=== PATIENT | female | born 1940 | race Two or more races ===

== ENCOUNTER 2022-10-30 10:32 | Outpatient (CLI) | payer OTHER ==
[~2022-10-30 10:32] MED LIST: ALEVE220 M1 PO; AMLODIPINE BESY10 MG; AMLODIPINE-OLM1 EAC3 PO; DIOVAN320 MG PO; GLIMEPIRIDE4 M1; HYDROCHLOROTH12.5 MG PO; JANUVIA100 MG PO; SIMVASTATIN20 MG; SYNTHROID125 MCG PO; TOPROL XL100 M1 PO; VALSARTAN-HCTZ1 EAC4; VALSARTAN320 MG
== END 2022-10-30 10:37 | disposition home or self-care (01) ==
LOC: RAD 10:32
DX: R06.00 Dyspnea, unspecified (principal); J98.4 Other disorders of lung; R09.02 Hypoxemia; J90 Pleural effusion, not elsewhere classified

== ENCOUNTER → 2022-11-24 08:28 | Outpatient (CLI) | payer OTHER | END | disposition home or self-care (01) | LOC: LAB 08:28 | PROVIDERS: ATTEND Internal Medicine | DX: R10.9 Unspecified abdominal pain (principal); I10 Essential (primary) hypertension ==

== ENCOUNTER 2022-12-01 12:18 | Emergency (ER) | payer OTHER ==
[~2022-12-01] VITALS: Ht 160 cm; Wt 79.4 kg
[2022-12-01] MEDS ORDERED: JARDIANCE25 MG PO (12:37)
[2022-12-01] MEDS ORDERED: LASIX20 MG PO (12:37)
[2022-12-01] MEDS ORDERED: AMIODARONE HCL100 MG PO (12:37)
[2022-12-01] MEDS ORDERED: HYDRALAZINE HC100 MG PO (12:38)
[2022-12-01] MEDS ORDERED: PROTONIX40 MG PO (12:38)
[2022-12-01] MEDS ORDERED: ELIQUIS2.5 MG PO (12:39)
[2022-12-01] MEDS ORDERED: SYNTHROID175 MCG PO (12:39)
[2022-12-01] MEDS ORDERED: HUMALOG100 UNIT/2 SQ (12:39)
[2022-12-01] MEDS ORDERED: VISTARIL25 MG PO (13:23)
== END 2022-12-01 13:50 | disposition home or self-care (01) ==
LOC: ER 12:18
DX: R60.0 Localized edema (principal); F41.9 Anxiety disorder, unspecified; I50.9 Heart failure, unspecified
CPT/HCPCS: 96365; 99284; J1940

== ENCOUNTER 2023-12-12 11:23 | Inpatient (IN) | payer OTHER ==
[~2023-12-12] VITALS: Ht 157.5 cm; Wt 77.1 kg
[~2023-12-12 11:23] MED LIST changes: +AMIODARONE HCL100 MG PO; +ELIQUIS2.5 MG PO; +HUMALOG100 UNIT/2 SQ; +HYDRALAZINE HC100 MG PO; +JARDIANCE25 MG PO; +LASIX20 MG PO; +PROTONIX40 MG PO; +SYNTHROID175 MCG PO; +VISTARIL25 MG PO
--- NOTE | 2023-12-12 11:56 | NUR ---
PACIENTE FEMINA ALERTA Y ORIENTADA X3 QUIEN REFIERE QUE DESDE HACE 4 RENE APROXAMADAMENTE COMENZO CON MALESTAR GENERAL, NAUCEAS, FIEBRE, SE MONITOREAN S/V Y SE UBICA PACIENTE.
[2023-12-12] MEDS ORDERED: LEVALBUTEROL HCL 0.63 MG/3 ML SOLUTION IH ONE (12:30)
--- NOTE | 2023-12-12 12:37 | NUR ---
PACIENTE EVALUADA POR MD QUEIN ORDENA TRATAMIENTO MEDICO, SE LE ORIENTA A PACIENTE SOBRE EL MISMO Y REFIER ENTENDER, SE LE COLECTAN MUESTRAS, SE NOTIFICAN TERAPIAS A PERSONAL CORRESPONDIENTE.
[2023-12-12 12:55] LABS: HEMATOCRIT 30.2 % (36.0-45.00); HEMOGLOBIN 9.9 g/dL (12.0-15.00); MEAN CELL VOLUME 92.1 fL (80.00-100.00); MEAN CORPUSCULAR HEMOGLOBIN 30.3 pg (27.00-32.0); MEAN CORPUSCULAR HGB CONC 32.9 g/dl (32.0-36.0); PLATELET COUNT 193 K/uL (150-450); RED BLOOD COUNT 3.28 M/uL (4.00-6.00); RED CELL DISTRIBUTION WIDTH 14.8 % (11.5-14.5)
[2023-12-12 13:08] LABS: ALBUMIN 2.5 gm/dL (3.4-5.0); BILIRUBIN TOTAL 0.66 mg/dL (0.3-1.2); CREATININE SERUM 1.45 mg/dL (0.55-1.02); GFR 34.4; GLOBULINA 5.1 G/DL (2.4-3.5); POTASSIUM 3.91 mEq/L (3.5-5.1); TOTAL PROTEIN 7.6 gm/dL (6.4-8.2)
[2023-12-12 13:17] LABS: ABG PH 7.425 (7.35-7.45); ABG PO2 102.8 mmHg (80-100); ABG pCO2 43.4 mmHg (35-45); BASE EXCESS 2.9 mmol/l; BICARBONATE 27.8 mmol/l (23-25); SaO2 98.1 %; Tco2 29.1 mmol/l
[2023-12-12 13:55] LABS: allen test SATISFACTORY; o2 36 %; puncture site RADIAL RIGHT
[2023-12-12 14:11] LABS: URINE APPEARANCE Cloudy; URINE BILIRRUBIN Negative (NEGATIVE); URINE BLOOD Negative; URINE COLOR Yellow; URINE KETONE Negative (NEGATIVE); URINE LEUKOCYTE Negative; URINE NITRATE Negative; URINE UROBILINOGEN 0.2 E.U./dl
[2023-12-12 14:13] LABS: URINE BACTERIA 120.9 uL (0.0-1933); URINE CAST 4.58 uL (0.0-1.40); URINE EPITHELIAL CELLS 30.1 uL (0.0-38.8); URINE WBC 10.6 uL (0.0-23.2)
[2023-12-12 14:37] LABS: URINE GLUCOSE >=1000 MG/DL (NEGATIVE); URINE PROTEIN 100 (NEGATIVE)
--- NOTE | 2023-12-12 16:40 | NUR ---
SE RECIBE PTE DE AREA DE FT PENDIENTE A SER EVALUADA POR MEDICINA INTERNA.
[2023-12-12] MEDS ORDERED: IPRATROPIUM BROMIDE 0.5 MG/2.5 ML AMPUL.NEB IH SCH (18:57)
[2023-12-12] MEDS ORDERED: NITROGLYCERIN IN 5 % DEXTROSE 250 ML IV SCH (19:02)
[2023-12-12] MEDS ORDERED: DEXTROSE 50 % IN WATER 0.5 G/ML DISP.SYRIN IV PRN (19:15)
[2023-12-12] MEDS ORDERED: INSULIN LISPRO 1,000 UNIT/10 ML UNITS SUBCUTANEO PRN (19:15)
[2023-12-12] MEDS ORDERED: FUROsemide 20 MG/2 ML VIAL IV SCH (21:23)
[2023-12-12 23:31] LABS: MAGNESIUM 2.6 mg/dL (1.8-2.4); PHOSPHOROUS 3.8 mg/dL (2.5-4.9)
[2023-12-12 23:38] LABS: INR 1.08; PROTHROMBIN TIME 11.7 SECONDS (9.0-11.5)
[2023-12-12 23:40] LABS: PARTIAL THROMBOPLASTIN TIME 38.7 SECONDS (22.0-34.0)
[2023-12-13] VITALS (23 sets, daily range): BP systolic 100–176; BP diastolic 46–69; O2SAT 90–100
[2023-12-13] MEDS ORDERED: CEFTRIAXONE SODIUM 2,000 MG in 0.9 % SODIUM CHLORIDE 100 ML IV SCH ×2 (00:10→21:00)
[2023-12-13] MEDS ORDERED: ACETAMINOPHEN 500 MG GEL..CAP PO ONE (00:15)
[2023-12-13] MEDS ORDERED: LEVOTHYROXINE SODIUM 125 MCG TABLET PO SCH (06:00)
[2023-12-13] MEDS ORDERED: NITROGLYCERIN IN 5 % DEXTROSE 250 ML IV SCH (07:00)
[2023-12-13] MEDS ORDERED: APIXABAN 5 MG TABLET PO SCH (09:00)
[2023-12-13] MEDS ORDERED: METOPROLOL SUCCINATE 100 MG TAB.SR.24H PO SCH (09:00)
[2023-12-13] MEDS ORDERED: SIMVASTATIN 20 MG TABLET PO SCH (17:00)
[2023-12-13 22:17] LABS: ABG PH 7.429 (7.35-7.45); ABG PO2 64.8 mmHg (80-100); BASE EXCESS 2.6 mmol/l; BICARBONATE 27.2 mmol/l (23-25); Tco2 28.5 mmol/l; o2 32 %
[2023-12-13 22:18] LABS: allen test SATISFACTORY; puncture site RADIAL RIGHT
[2023-12-13 22:19] LABS: SaO2 93.1 %
[2023-12-14] VITALS (10 sets, daily range): BP systolic 140–186; BP diastolic 60–79; O2SAT 90–97
[2023-12-14] MEDS ORDERED: CEFTRIAXONE SODIUM 2,000 MG in 0.9 % SODIUM CHLORIDE 100 ML IV SCH
[2023-12-14] MEDS ORDERED: CANDESARTAN CILEXETIL 8 MG TAB PO NR (11:00)
[2023-12-15] VITALS (9 sets, daily range): BP systolic 111–175; BP diastolic 51–73; O2SAT 90–99
[2023-12-15] MEDS ORDERED: PANTOPRAZOLE SODIUM 40 MG/VIAL VIAL IV PUSH SCH (09:00)
[2023-12-15] MEDS ORDERED: AMLODIPINE BESYLATE 5 MG TABLET PO SCH (09:00)
[2023-12-15] MEDS ORDERED: FUROsemide 20 MG TABLET PO SCH (09:00)
[2023-12-15] MEDS ORDERED: AMIODARONE HCL 200 MG TABLET PO SCH (09:00)
[2023-12-15] MEDS ORDERED: CANDESARTAN CILEXETIL 8 MG TAB PO SCH (09:00)
[2023-12-15] MEDS ORDERED: ISOSORBIDE DINITRATE 20 MG TABLET PO SCH (09:00)
[2023-12-15] MEDS ORDERED: CANDESARTAN CILEXETIL 16 MG TABLET PO SCH (09:01)
[2023-12-15 09:53] LABS: ABG PH 7.458 (7.35-7.45)
[2023-12-15 09:54] LABS: ABG PO2 70.2 mmHg (80-100); ABG pCO2 46.3 mmHg (35-45); BASE EXCESS 7.1 mmol/l; BICARBONATE 32.1 mmol/l (23-25); SaO2 90.6 %; Tco2 33.5 mmol/l
[2023-12-15 09:55] LABS: allen test SATISFACTORY; o2 21 %; puncture site RADIAL RIGHT
[2023-12-15 11:13] LABS: HEMATOCRIT 29.2 % (36.0-45.00); HEMOGLOBIN 9.6 g/dL (12.0-15.00); MEAN CORPUSCULAR HGB CONC 32.9 g/dl (32.0-36.0); PLATELET COUNT 258 K/uL (150-450); RED BLOOD COUNT 3.21 M/uL (4.00-6.00); RED CELL DISTRIBUTION WIDTH 15.2 % (11.5-14.5)
[2023-12-15 12:32] LABS: ALBUMIN 2.1 gm/dL (3.4-5.0); BILIRUBIN TOTAL 0.48 mg/dL (0.3-1.2); CALCIUM 8.2 mg/dL (8.5-10.1); CREATININE SERUM 1.39 mg/dL (0.55-1.02); GFR 36.12; GLOBULINA 4.4 G/DL (2.4-3.5); POTASSIUM 4.39 mEq/L (3.5-5.1); TOTAL PROTEIN 6.5 gm/dL (6.4-8.2)
[2023-12-16] MEDS ORDERED: hydrALAZINE HCL 25 MG TABLET PO SCH (01:00)
[2023-12-16 01:18] VITALS: BP 155/66; O2SAT 98
[2023-12-16 09:06] VITALS: O2SAT 97
[2023-12-16 09:42] VITALS: BP 148/72; O2SAT 96
[2023-12-16 13:28] VITALS: O2SAT 90
[2023-12-16] MEDS ORDERED: ELIQUIS5 MG PO (15:14)
[2023-12-16] MEDS ORDERED: AMLODIPINE BESY10 MG BUCAL (15:16)
[2023-12-16] MEDS ORDERED: TOPROL XL100 M1 PO (15:23)
[2023-12-16] MEDS ORDERED: SIMVASTATIN20 MG BUCAL (15:24)
[2023-12-16] MEDS ORDERED: VISTARIL25 MG PO (15:24)
[2023-12-16] MEDS ORDERED: FUROSEMIDE20 MG PO (15:25)
[2023-12-16] MEDS ORDERED: PROTONIX40 MG PO (15:28)
[2023-12-16] MEDS ORDERED: GLIMEPIRIDE4 M1 BUCAL (15:29)
[2023-12-16] MEDS ORDERED: SYNTHROID125 MCG PO (15:29)
[2023-12-16 16:33] VITALS: O2SAT 90
== END 2023-12-16 17:52 | disposition home or self-care (01) | DRG 292 ==
LOC: ER 11:24 → ICU-2 19:05 → MEDI 19:05 → ICU 19:05 → ICU-2 20:37 → MEDI 12-14 10:04 → SEC-K 12-14 10:17 → MEDI 12-14 12:49
PROVIDERS: General Practice; ADMIT Internal Medicine; ATTEND Internal Medicine
PROC: B246ZZZ Ultrasonography of Right and Left Heart (ICD-10-PCS; principal; 2023-12-12)
PROC: 3E0F7GC Introduction of Other Therapeutic Substance into Respiratory Tract, Via Natural or Artificial Opening (ICD-10-PCS; 2023-12-13)
PROC: 4A12X4Z Monitoring of Cardiac Electrical Activity, External Approach (ICD-10-PCS; 2023-12-14)
DX: I13.0 Hypertensive heart and chronic kidney disease with heart failure and stage 1 through stage 4 chronic kidney disease, or unspecified chronic kidney disease (principal); I48.20 Chronic atrial fibrillation, unspecified; I50.32 Chronic diastolic (congestive) heart failure; N17.9 Acute kidney failure, unspecified; E87.70 Fluid overload, unspecified; N18.9 Chronic kidney disease, unspecified; E11.9 Type 2 diabetes mellitus without complications; E03.9 Hypothyroidism, unspecified; Z79.01 Long term (current) use of anticoagulants; Z79.4 Long term (current) use of insulin

== ENCOUNTER 2024-02-19 06:41 | Inpatient (IN) | payer OTHER ==
[~2024-02-19] VITALS: Ht 160 cm; Wt 81.6 kg
[~2024-02-19 06:41] MED LIST changes: +AMLODIPINE BESY10 MG BUCAL; +ELIQUIS5 MG PO; +FUROSEMIDE20 MG PO; +GLIMEPIRIDE4 M1 BUCAL; +SIMVASTATIN20 MG BUCAL
--- NOTE | 2024-02-19 07:00 | NUR ---
PTE ALERTA Y ORIENTADA X3 EN COMPANIA DE FAMILIAR. PTE REFIERE VENIR POR QUE MEEHAN ESTADO TENEINDO DIFICULTAD RESPIRATORIA DESDE LAS 2200 Y DOLOR EN EL PECHO. SE REALIZA EKG Y SE PRESENTA A DR CHERRY Y EL MISMOP REFIERE QUE SE COLOQUE EN CHEST PAIN. SE MIDEN S/V Y SE UBICA.
[2024-02-19] MEDS ORDERED: NITROGLYCERIN 250 ML IV SCH (08:30)
[2024-02-19] MEDS ORDERED: FUROsemide 40 MG/4 ML VIAL IV ONE (08:30)
[2024-02-19 08:42] LABS: HEMATOCRIT 30.3 % (36.0-45.00); HEMOGLOBIN 10.2 g/dL (12.0-15.00); MEAN CORPUSCULAR HEMOGLOBIN 31.7 pg (27.00-32.0); MEAN CORPUSCULAR HGB CONC 33.7 g/dl (32.0-36.0); PLATELET COUNT 200 K/uL (150-450); RED BLOOD COUNT 3.22 M/uL (4.00-6.00); RED CELL DISTRIBUTION WIDTH 17.8 % (11.5-14.5)
[2024-02-19 09:01] LABS: INR 1.08; PARTIAL THROMBOPLASTIN TIME 25.8 SECONDS (22.0-34.0); PROTHROMBIN TIME 11.7 SECONDS (9.0-11.5)
--- NOTE | 2024-02-19 09:02 | NUR ---
SE RECIBE PACIENTE ALERTA Y ORIENTADA X3 UBICADA EN CAMA #17, AREA DE CHEST PAIN. SE OBSERVA PACIENTE CON CANULA NASAL A 3L. PACIENTE SE ENCUENTRA CONECTADA A MONITOR CARDIACO Y OXIMETRIA DE PULSO CONTINUA CON VITALES DE BP: 167/65 (93), HR: 61 Y SPO2: 94%. CANALIZADA X2 EN RA CON ANGIOS #20 Y #22 PATENTES, LIBRES DE EDEMA Y PROCESOS INFECCIOSOS CON UN TRIDIL 50/250 BAJANDO A 3ML/HR. SE ADMINISTRAN MEDICAMENTOS Y SE EXTRAEN MUESTRAS DE LABORATORIO PADMA ORDEN MEDICA. SE COLOCA SONDA URINARIA QUE SE ENCUENTRA PATENTE BAJANDO A GRAVEDAD CON EGRESO URINARIO COLOR AMARILLO TOMA. PENDIENTE RESULTADOS Y ABG'S.
[2024-02-19 09:27] LABS: ALBUMIN 3.5 gm/dL (3.4-5.0); BILIRUBIN TOTAL 0.91 mg/dL (0.3-1.2); CREATININE SERUM 1.67 mg/dL (0.55-1.02); GFR 29.23; GLOBULINA 4.7 G/DL (2.4-3.5); POTASSIUM 4.59 mEq/L (3.5-5.1); TOTAL PROTEIN 8.2 gm/dL (6.4-8.2)
[2024-02-19 11:55] LABS: ABG PH 7.364 (7.35-7.45); ABG PO2 70.7 mmHg (80-100); ABG pCO2 54.2 mmHg (35-45); BASE EXCESS 3.4 mmol/l; BICARBONATE 30.2 mmol/l (23-25); SaO2 93.4 %; Tco2 31.8 mmol/l; allen test SATISFACTORY; o2 32 %; puncture site RADIAL LEFT
--- NOTE | 2024-02-19 15:29 | NUR ---
SE RECIBE PACIENTE ALERTA Y ORIENTADA X 3 ESFERAS EN CAMA CON BARANDAS ELEVADAS POR SEGURIDAD. CONECTADA A MONITOR CARDIACO, OXIMETRIA DE PULSO Y ASISTIDA RESPIRATORIAMENTE POR UN VENTURY MASK AL 50%. RECIBIENDO TRIDIL 50MG/250ML BAJANDO A 3ML/HR POR VENOPUNCION EN BRAZO DERECHO AREA IONA DE EDEMA Y ERITEMA. SONDA URINARIA DRENANDO A GRAVEDAD 600ML DE ORINA COLOR AMARILLO TOMA. SE PATI A PACIENTE EN CAMA CON BARANDAS ELEVADAS POR SEGURIDAD Y SE MANTIENE EN OBSERVACION POR CAMBIOS EN CONDICION MEDICA.
[2024-02-19] MEDS ORDERED: hydrALAZINE HCL 25 MG TABLET PO SCH (17:14)
[2024-02-19] MEDS ORDERED: FUROsemide 20 MG/2 ML VIAL IV SCH (17:15)
[2024-02-19] MEDS ORDERED: DEXTROSE 50 % IN WATER 0.5 G/ML DISP.SYRIN IV PRN (20:30)
[2024-02-19] MEDS ORDERED: INSULIN LISPRO 1,000 UNIT/10 ML UNITS SUBCUTANEO PRN (20:30)
[2024-02-19] MEDS ORDERED: PANTOPRAZOLE SODIUM 40 MG/VIAL VIAL IV SCH (21:00)
[2024-02-19] MEDS ORDERED: SIMVASTATIN 20 MG TABLET PO SCH (21:00)
[2024-02-19 21:04] VITALS: BP 147/88; O2SAT 95
[2024-02-19 22:22] VITALS: BP 171/89; O2SAT 94
[2024-02-19 23:34] VITALS: BP 167/69; O2SAT 95
[2024-02-20 03:10] LABS: URINE APPEARANCE Clear; URINE BILIRRUBIN Negative (NEGATIVE); URINE COLOR Yellow; URINE GLUCOSE Negative (NEGATIVE); URINE NITRATE Negative; URINE UROBILINOGEN 0.2 E.U./dl
[2024-02-20 03:35] LABS: URINE BACTERIA 99.5 uL (0.0-1933); URINE BLOOD Small; URINE CAST 10.99 uL (0.0-1.40); URINE EPITHELIAL CELLS 9.4 uL (0.0-38.8); URINE KETONE Negative (NEGATIVE); URINE LEUKOCYTE Small; URINE PROTEIN Trace (NEGATIVE)
[2024-02-20] MEDS ORDERED: LEVOTHYROXINE SODIUM 125 MCG TABLET PO SCH (06:00)
[2024-02-20] MEDS ORDERED: NITROGLYCERIN IN 5 % DEXTROSE 250 ML IV SCH (07:00)
[2024-02-20 08:13] VITALS: BP 168/68; O2SAT 96
[2024-02-20] MEDS ORDERED: METOPROLOL SUCCINATE 100 MG TAB.SR.24H PO SCH (09:00)
[2024-02-20] MEDS ORDERED: AMLODIPINE BESYLATE 10 MG TABLET PO SCH (09:00)
[2024-02-20] MEDS ORDERED: APIXABAN 2.5 MG TABLET PO SCH (09:00)
[2024-02-20 16:46] VITALS: BP 141/63; O2SAT 93
[2024-02-20 17:34] VITALS: O2SAT 88
[2024-02-20 20:20] VITALS: O2SAT 90
[2024-02-21] VITALS (8 sets, daily range): BP systolic 136–162; BP diastolic 60–68; O2SAT 86–96
[2024-02-21 07:27] LABS: HEMATOCRIT 27.1 % (36.0-45.00); MEAN CELL VOLUME 94.3 fL (80.00-100.00); MEAN CORPUSCULAR HGB CONC 33.1 g/dl (32.0-36.0); PLATELET COUNT 186 K/uL (150-450); RED BLOOD COUNT 2.87 M/uL (4.00-6.00); RED CELL DISTRIBUTION WIDTH 16.7 % (11.5-14.5)
[2024-02-21 07:28] LABS: HEMOGLOBIN 8.9 g/dL (12.0-15.00)
[2024-02-21 08:16] LABS: ALBUMIN 3.1 gm/dL (3.4-5.0); BILIRUBIN TOTAL 1.32 mg/dL (0.3-1.2); CREATININE SERUM 1.16 mg/dL (0.55-1.02); GFR 44.51; GLOBULINA 3.8 G/DL (2.4-3.5); POTASSIUM 4.36 mEq/L (3.5-5.1); TOTAL PROTEIN 6.9 gm/dL (6.4-8.2)
[2024-02-21] MEDS ORDERED: hydrALAZINE HCL 50 MG TABLET PO SCH (13:00)
[2024-02-21] MEDS ORDERED: ACETAZOLAMIDE SODIUM 500 MG VIAL IV SCH (18:58)
[2024-02-22 01:51] VITALS: BP 149/67; O2SAT 92
[2024-02-22 02:47] VITALS: O2SAT 90
[2024-02-22 06:27] VITALS: O2SAT 94
[2024-02-22 07:26] LABS: ABG PH 7.408 (7.35-7.45); ABG PO2 59.2 mmHg (80-100)
[2024-02-22 07:27] LABS: BASE EXCESS 9.4 mmol/l; BICARBONATE 36.4 mmol/l (23-25); SaO2 91.2 %; Tco2 38.2 mmol/l; allen test SATISFACTORY; o2 32 %; puncture site RADIAL RIGHT
[2024-02-22 08:00] VITALS: BP 142/72
[2024-02-22 11:59] LABS: HEMATOCRIT 29.5 % (36.0-45.00); HEMOGLOBIN 9.8 g/dL (12.0-15.00); MEAN CELL VOLUME 94.5 fL (80.00-100.00); MEAN CORPUSCULAR HEMOGLOBIN 31.5 pg (27.00-32.0); MEAN CORPUSCULAR HGB CONC 33.4 g/dl (32.0-36.0); PLATELET COUNT 187 K/uL (150-450); RED BLOOD COUNT 3.12 M/uL (4.00-6.00); RED CELL DISTRIBUTION WIDTH 16.8 % (11.5-14.5)
[2024-02-22 12:42] LABS: ALBUMIN 3.2 gm/dL (3.4-5.0); BILIRUBIN TOTAL 1.7 mg/dL (0.3-1.2); CALCIUM 9.1 mg/dL (8.5-10.1); CREATININE SERUM 1.34 mg/dL (0.55-1.02); GFR 37.68; GLOBULINA 4.3 G/DL (2.4-3.5); POTASSIUM 4.51 mEq/L (3.5-5.1); TOTAL PROTEIN 7.5 gm/dL (6.4-8.2)
[2024-02-22 15:51] LABS: ABG PH 7.351 (7.35-7.45)
[2024-02-22 15:52] LABS: ABG PO2 72.6 mmHg (80-100); ABG pCO2 63.4 mmHg (35-45); BASE EXCESS 6.4 mmol/l; BICARBONATE 34.3 mmol/l (23-25); SaO2 93.8 %; Tco2 36.2 mmol/l; allen test SATISFACTORY; o2 36 %; puncture site RADIAL RIGHT
[2024-02-22 16:00] VITALS: BP 136/80; O2SAT 96
[2024-02-22] MEDS ORDERED: ACETAZOLAMIDE SODIUM 500 MG VIAL IV SCH (17:00)
[2024-02-23 00:50] VITALS: BP 174/74; O2SAT 94
[2024-02-23 09:37] VITALS: BP 155/70; O2SAT 96
[2024-02-23 17:02] VITALS: BP 172/79; O2SAT 93
[2024-02-23] MEDS ORDERED: PANTOPRAZOLE SODIUM 40 MG TABLET.DR PO SCH (21:00)
[2024-02-24] VITALS: BP 145/64; O2SAT 95
[2024-02-24 03:25] VITALS: O2SAT 99
[2024-02-24 08:00] VITALS: BP 151/65; O2SAT 95
[2024-02-24] MEDS ORDERED: LEVALBUTEROL HCL 1.25 MG/3 ML SOLUTION IH NR (09:50)
[2024-02-24] MEDS ORDERED: LEVALBUTEROL HCL 1.25 MG/3 ML SOLUTION IH SCH (13:00)
[2024-02-24 16:54] VITALS: BP 155/70; O2SAT 97
[2024-02-25 00:46] VITALS: BP 145/77; O2SAT 97
[2024-02-25 08:00] VITALS: BP 107/72; O2SAT 95
[2024-02-25 08:37] LABS: CREATININE SERUM 1.25 mg/dL (0.55-1.02); GFR 40.83; POTASSIUM 4.01 mEq/L (3.5-5.1)
[2024-02-25 08:53] LABS: HEMATOCRIT 29.2 % (36.0-45.00); HEMOGLOBIN 9.6 g/dL (12.0-15.00); MEAN CELL VOLUME 95.1 fL (80.00-100.00); MEAN CORPUSCULAR HEMOGLOBIN 31.4 pg (27.00-32.0); PLATELET COUNT 193 K/uL (150-450); RED BLOOD COUNT 3.07 M/uL (4.00-6.00); RED CELL DISTRIBUTION WIDTH 16.3 % (11.5-14.5)
[2024-02-25 12:36] VITALS: O2SAT 95
== END 2024-02-25 22:01 | disposition home or self-care (01) | DRG 291 ==
LOC: ER 06:41 → SURH 20:52 → SEC-K 20:52 → SURH 02-20 01:35
PROVIDERS: General Practice; Internal Medicine; ADMIT Internal Medicine; ATTEND Internal Medicine
PROC: 4A12X4Z Monitoring of Cardiac Electrical Activity, External Approach (ICD-10-PCS; principal; 2024-02-19)
PROC: BB24ZZZ Computerized Tomography (CT Scan) of Bilateral Lungs (ICD-10-PCS; 2024-02-19)
PROC: B246ZZZ Ultrasonography of Right and Left Heart (ICD-10-PCS; 2024-02-19)
PROC: 5A0945A Assistance with Respiratory Ventilation, 24-96 Consecutive Hours, High Flow/Velocity Cannula (ICD-10-PCS; 2024-02-19)
PROC: 3E0F7GC Introduction of Other Therapeutic Substance into Respiratory Tract, Via Natural or Artificial Opening (ICD-10-PCS; 2024-02-25)
DX: I50.33 Acute on chronic diastolic (congestive) heart failure (principal); J80 Acute respiratory distress syndrome; I48.20 Chronic atrial fibrillation, unspecified; N17.9 Acute kidney failure, unspecified; I12.9 Hypertensive chronic kidney disease with stage 1 through stage 4 chronic kidney disease, or unspecified chronic kidney disease; N18.9 Chronic kidney disease, unspecified; E11.9 Type 2 diabetes mellitus without complications; G47.33 Obstructive sleep apnea (adult) (pediatric); Z79.01 Long term (current) use of anticoagulants; Z79.4 Long term (current) use of insulin; Z79.84 Long term (current) use of oral hypoglycemic drugs

== ENCOUNTER 2024-03-05 11:56 | Inpatient (IN) | payer OTHER ==
[~2024-03-05] VITALS: Ht 157.5 cm; Wt 83.9 kg
[2024-03-05] MEDS ORDERED: levoFLOXacin IN DEXTROSE 5 % 5 MG/ML PIGGYBAG IV ONE (13:30)
[2024-03-05] MEDS ORDERED: 0.9 % SODIUM CHLORIDE 1,000 ML IV SCH (13:30)
[2024-03-05] MEDS ORDERED: LEVALBUTEROL HCL 0.63 MG/3 ML SOLUTION IH SCH ×2 (13:30→21:56)
--- NOTE | 2024-03-05 13:31 | NUR ---
FEMILIAR DE PTE AFIRMA QUE NO PUEDE REASPIRA Y QUE TIENE DOLOR DE PECHO ,.SE LE KENDALL S/V Y SE LE REALIZA EKG A PTE Y SE LE PRESENTA A EL DR P[EZZOTTI SE ACOMODA EN CAMA CON BARANDAS ELEVADA Y OXIGENO.
[2024-03-05] MEDS ORDERED: FUROsemide 20 MG/2 ML VIAL IV ONE (13:45)
[2024-03-05 14:33] LABS: HEMATOCRIT 29.4 % (36.0-45.00); MEAN CELL VOLUME 95.3 fL (80.00-100.00); MEAN CORPUSCULAR HGB CONC 32.8 g/dl (32.0-36.0); PLATELET COUNT 199 K/uL (150-450); RED BLOOD COUNT 3.08 M/uL (4.00-6.00)
[2024-03-05 14:36] LABS: ABG PH 7.328 (7.35-7.45); ABG pCO2 43.5 mmHg (35-45)
[2024-03-05 14:37] LABS: ABG PO2 55.9 mmHg (80-100); BASE EXCESS -3.6 mmol/l; BICARBONATE 22.3 mmol/l (23-25); SaO2 85.8 %; Tco2 23.6 mmol/l; allen test SATISFACTORY; o2 32 %; puncture site RADIAL RIGHT
[2024-03-05 14:40] LABS: HEMOGLOBIN 9.6 g/dL (12.0-15.00); MEAN CORPUSCULAR HEMOGLOBIN 31.1 pg (27.00-32.0)
--- NOTE | 2024-03-05 14:45 | NUR ---
SE RECIBE PTE FEMENINA DE 83 YRS ALERTA CONIENTEW Y TRANQUILA EN COMPANIA DE FAMILAIR PTE ES EVALUADA POR EL RAPHAEL ALBRECHT QUIEN ORDENA TRATAMIENTO LA CUAL SE EJECUTGA.SE CONECTA A MONITOR CARDIACO Y OXIMENTRIA.
[2024-03-05 14:56] LABS: CALCIUM 9.2 mg/dL (8.5-10.1); CREATININE SERUM 1.42 mg/dL (0.55-1.02); GFR 35.24; POTASSIUM 4.56 mEq/L (3.5-5.1)
[2024-03-05 16:24] LABS: URINE APPEARANCE Clear; URINE BILIRRUBIN Negative (NEGATIVE); URINE BLOOD Negative; URINE COLOR Yellow; URINE GLUCOSE Negative (NEGATIVE); URINE KETONE Negative (NEGATIVE); URINE LEUKOCYTE Trace; URINE NITRATE Negative; URINE PROTEIN 30 (NEGATIVE); URINE UROBILINOGEN 0.2 E.U./dl
[2024-03-05 16:27] LABS: URINE BACTERIA 248.4 uL (0.0-1933); URINE EPITHELIAL CELLS 32.7 uL (0.0-38.8); URINE WBC 26.5 uL (0.0-23.2)
[2024-03-05 17:16] LABS: ALT/SGPT 16 U/L (12-78); AST/SGOT 16 U/L (15-37); LDH 255 U/L (84-246); PHOSPHOKINASE CREATININE 148 U/L (26-192)
[2024-03-05] MEDS ORDERED: FUROsemide 20 MG/2 ML VIAL IV SCH (19:19)
[2024-03-05] MEDS ORDERED: APIXABAN 5 MG TABLET PO SCH (19:20)
[2024-03-05] MEDS ORDERED: IPRATROPIUM BROMIDE 0.5 MG/2.5 ML AMPUL.NEB IH SCH (19:24)
[2024-03-05] MEDS ORDERED: NITROGLYCERIN 0.4 MG/HR PATCH.TD24 TD ONE (19:30)
[2024-03-05] MEDS ORDERED: LEVALBUTEROL HCL 0.63 MG/3 ML SOLUTION IH ONE (19:30)
[2024-03-05] MEDS ORDERED: ACETAMINOPHEN 500 MG GEL..CAP PO PRN (19:30)
[2024-03-05 23:51] VITALS: BP 159/65; O2SAT 93
[2024-03-06] MEDS ORDERED: LEVOTHYROXINE SODIUM 125 MCG TABLET PO SCH (06:00)
[2024-03-06 08:02] VITALS: BP 110/63; O2SAT 90
[2024-03-06] MEDS ORDERED: ATORVASTATIN CALCIUM 40 MG TABLET PO SCH (09:00)
[2024-03-06] MEDS ORDERED: METOPROLOL SUCCINATE 100 MG TAB.SR.24H PO SCH (09:00)
[2024-03-06] MEDS ORDERED: FAMOTIDINE/PF 20 MG in 0.9 % SODIUM CHLORIDE 8 ML IV PUSH SCH (09:00)
[2024-03-06] MEDS ORDERED: AMIODARONE HCL 200 MG TABLET PO SCH (09:00)
[2024-03-06 14:03] VITALS: O2SAT 88
[2024-03-06 18:07] VITALS: BP 185/75; O2SAT 90
[2024-03-06 19:24] VITALS: O2SAT 93
[2024-03-06 19:45] VITALS: O2SAT 93
[2024-03-07] VITALS (9 sets, daily range): BP systolic 124–188; BP diastolic 68–72; O2SAT 86–95
[2024-03-08] VITALS (8 sets, daily range): BP systolic 149–174; BP diastolic 60–62; O2SAT 83–98
[2024-03-08 06:39] LABS: ALBUMIN 3.2 gm/dL (3.4-5.0); BILIRUBIN TOTAL 1.77 mg/dL (0.3-1.2); CALCIUM 8.8 mg/dL (8.5-10.1); CREATININE SERUM 1.17 mg/dL (0.55-1.02); GFR 44.07; GLOBULINA 4.1 G/DL (2.4-3.5); POTASSIUM 3.62 mEq/L (3.5-5.1); TOTAL PROTEIN 7.3 gm/dL (6.4-8.2)
[2024-03-08 11:20] LABS: ABG PH 7.422 (7.35-7.45); ABG pCO2 54.6 mmHg (35-45); BASE EXCESS 8.4 mmol/l; BICARBONATE 34.8 mmol/l (23-25); SaO2 86.7 %; Tco2 36.5 mmol/l
[2024-03-08 11:24] LABS: ABG PO2 49.9 mmHg (80-100)
[2024-03-08 11:25] LABS: allen test SATISFACTORY; o2 32 %; puncture site RADIAL LEFT
[2024-03-09 02:00] VITALS: O2SAT 90
[2024-03-09 03:09] VITALS: BP 160/85; O2SAT 95
[2024-03-09 06:32] VITALS: O2SAT 90
[2024-03-09 10:04] VITALS: O2SAT 100
[2024-03-09 10:28] VITALS: BP 110/75; O2SAT 96
[2024-03-09 14:30] VITALS: O2SAT 97
== END 2024-03-09 21:22 | disposition home or self-care (01) | DRG 190 ==
LOC: ER 11:58 → SEC-K 21:44 → MEDJ 21:44
PROVIDERS: Emergency Medicine; General Practice; Internal Medicine Nephrology; ADMIT Internal Medicine; ATTEND Internal Medicine
PROC: B246ZZZ Ultrasonography of Right and Left Heart (ICD-10-PCS; principal; 2024-03-05)
PROC: 3E0F7GC Introduction of Other Therapeutic Substance into Respiratory Tract, Via Natural or Artificial Opening (ICD-10-PCS; 2024-03-05)
PROC: 4A12X4Z Monitoring of Cardiac Electrical Activity, External Approach (ICD-10-PCS; 2024-03-06)
DX: J44.1 Chronic obstructive pulmonary disease with (acute) exacerbation (principal); I50.31 Acute diastolic (congestive) heart failure; I13.0 Hypertensive heart and chronic kidney disease with heart failure and stage 1 through stage 4 chronic kidney disease, or unspecified chronic kidney disease; N17.8 Other acute kidney failure; J90 Pleural effusion, not elsewhere classified; N18.9 Chronic kidney disease, unspecified; E03.8 Other specified hypothyroidism; I48.91 Unspecified atrial fibrillation; R09.02 Hypoxemia